=== PATIENT | female | born 1935 | race Caucasian/White ===

== ENCOUNTER 2016-07-18 10:37 | Day surgery (SDC) | payer MEDICARE, BC ==
[2016-07-15 11:37] VITALS: BMI 30.9
[~2016-07-18 10:37] MED LIST: SODIUM CHLORIDE 0.9% 1,000 ML IV SCH; ceFAZolin 1,000 MG in SODIUM CHLORIDE 0.9% IRRIGATIO 250 ML IRRIGATION ONE; ceFAZolin 2 GM in SODIUM CHLORIDE 0.9% 100 ML IVPB ONE
[2016-07-18 10:53] VITALS: TEMP 97.5
[2016-07-18] MEDS ORDERED: LORazepam 2 MG/ML SYRINGE IV ONE (11:12)
[2016-07-18] MEDS ORDERED: fentaNYL (PF) 50 MCG/ML 2 ML AMP ONE (11:55)
[2016-07-18] MEDS ORDERED: MIDAZOLAM 2 MG/2 ML VIAL ONE (11:58)
[2016-07-18] MEDS ORDERED: fentaNYL (PF) 50 MCG/ML 2 ML AMP IV ONE (12:00)
[2016-07-18] MEDS ORDERED: MIDAZOLAM 2 MG/2 ML VIAL IV ONE (12:01)
[2016-07-18] MEDS ORDERED: LIDOCAINE 2% INJ 20 MG/ML SQ ONE (12:02)
[2016-07-18] MEDS ORDERED: LIDOCAINE 0.5%-EPI 1:200,000 50 ML VIAL SQ ONE (12:16)
[2016-07-18] MEDS ORDERED: LIDOCAINE 1% INJ 10MG/ML (20 ML MDV) SQ ONE (12:16)
[2016-07-18] MEDS ORDERED: ACETAMINOPHEN TAB 325 MG TAB PO PRN ×2 (12:39→12:40)
[2016-07-18] MEDS ORDERED: HYDROcodone/APAP 5-325MG 1 EACH TAB PO PRN (12:40)
[2016-07-18 13:29] VITALS: PULSE 60
[2016-07-18 16:11] VITALS: BP 105/56; RESP 18
--- NOTE | 2016-07-19 07:01 | P.PCN ---
Date of Procedure: 07/18/16 Preoperative Diagnosis: Batteryry depletion,Pacemaker dependency Postoperative Diagnosis: same Procedure(s) Performed: Temporary pacemaker insertion,Battery replacemengt Implants: Indications for Procedure: Operative Findings: Description of Procedure: HISTORY: This pt with h/O PPM insertion was detected to have reached BENITA.Pt is advised to have elective replacement.She is advised to have temporary pacemaker insertion because of pacemaker dependency.Pt and family are explained the risks and benifits of the procedure which they fully understood and accepted. CONSCIOUS SEDATION:30 min of sedation was given with versed and fentanyl. TEMPORARY PACEMAKER INSERTION:The pt is prepped and draped in the usual fashion.The rt groin is infiltrated with lidocaine .The rt femoral vein was entered using seldinger technique and 6 fr introducer was placed. A 5 fr temporary pacemaker lead was advanced under flouroscopy in to rt ventricular apical region.A satisfactory position was found.Pacemaker is set at a rate of 50 and out put of 3. GENERATOR CHANGE:The pt is prepped and draped in usual fashion.The skin is infiltrated with lidocaine.A incision was made in the skin and deepened untill the capsule is exposed.The capsule is cut open and the generator is pulled out.The leads were checked for threshholds which were stable. A LEAD:This is manufactured by [employer].Model No is 5592 and ser no is [id number] V LEAD:Manufactured by [employer].Model no is [id number] and ser no is [id number] THRESHHOLD: ATRIUM: 0.6 V AT 0.4 MSEC ,Impedance 404 Ohms P wave is 3.2. VENTRICLE: 1.3 V @0.4 Msec ,Impedance 467 ohms and R wave is paced. New Genarator: Model L101 and ser no [id number].Manufactured by [employer]. Old Generator:Manufactured by [employer].Model no [id number] and Ser No is [id number] The leads were connected to New Generator.The pocket was irrigated with antibiotics.the skin was closed in the usual fashion.Pt tolerated the procure well. PLAN:pt will be monitored for next 2 to 3hrs.Will be discharged home later today.will continue home meds and antibiotics.usual instructions.F/U in one wk with .
== END 2016-07-18 17:30 | disposition home or self-care (01) ==
LOC: CATHEP 10:37
PROVIDERS: ATTEND Internal Medicine Cardiovascular Disease
DX: Z45.010 Encounter for checking and testing of cardiac pacemaker pulse generator [battery] (principal); R00.1 Bradycardia, unspecified; I10 Essential (primary) hypertension; E78.2 Mixed hyperlipidemia; Z79.82 Long term (current) use of aspirin; Z79.899 Other long term (current) drug therapy
CPT/HCPCS: 33228; 99152; 99153 ×3; C1894; C1769 ×2; C1785; J2001 ×2; J2250; J2060; J0690 ×2; J3010

== ENCOUNTER 2017-03-03 07:56 | Day surgery (SDC) | payer MEDICARE, BC ==
[2017-02-24 08:55] VITALS: BMI 32.5
[~2017-03-03 07:56] MED LIST changes: +DEXAMETHASONE SOD PHOSPHATE 10 MG/ML 1 ML VIAL IV ONE; +HEPARIN SODIUM,PORCINE 5,000 UNIT/ML 1 ML VIAL SQ ONE; +HYDROmorphone 1 MG/ML 1 ML SYRINGE IVP PRN; +LACTATED RINGERS 1,000 ML IV SCH; +ONDANSETRON 4 MG/2 ML VIAL IVP ONE; +Pre Op ABX Message 1 EACH MISC MISCELLANE ONE; -SODIUM CHLORIDE 0.9% 1,000 ML IV SCH; -ceFAZolin 1,000 MG in SODIUM CHLORIDE 0.9% IRRIGATIO 250 ML IRRIGATION ONE; -ceFAZolin 2 GM in SODIUM CHLORIDE 0.9% 100 ML IVPB ONE
[2017-03-03] MEDS ORDERED: LIDOCAINE 1% 20 ML VIAL (10MG/ML) FOR IV START INTRADERMA ONE (08:15)
[2017-03-03] MEDS ORDERED: ROCURONIUM BROMIDE 10 MG/ML 10 ML VIAL IV ONE (08:42)
[2017-03-03] MEDS ORDERED: fentaNYL (PF) 50 MCG/ML 2 ML AMP ONE (08:42)
[2017-03-03] MEDS ORDERED: SUCCINYLCHOLINE CHLORIDE 100 MG/5 ML SYR IV ONE (08:42)
[2017-03-03] MEDS ORDERED: LIDOCAINE 1% INJ 10MG/ML (20 ML MDV) ONE (08:42)
[2017-03-03] MEDS ORDERED: PHENYLEPHRINE-0.9% NACL SYG 1 MG/10 ML SYRINGE ONE (08:42)
[2017-03-03] MEDS ORDERED: NEOSTIGMINE 1 MG/ML 10 ML VIAL ONE (08:42)
[2017-03-03] MEDS ORDERED: PROPOFOL 10 MG/ML 20 ML VIAL IV ONE (08:42)
[2017-03-03] MEDS ORDERED: GLYCOPYRROLATE 0.2 MG/ML 2 ML VIAL ONE (08:42)
[2017-03-03] MEDS ORDERED: SODIUM CHLORIDE 0.9% 100 ML with ceFAZolin 2,000 MG IV ONE ×2 (08:45)
[2017-03-03] MEDS ORDERED: BUPIVACAINE (PF) 0.25% 30 ML VIAL SQ ONE ×2 (08:57)
--- NOTE | 2017-03-03 09:53 | P.OP ---
Date of Procedure: 03/03/17 Preoperative Diagnosis: Cholelithiasis chronic cholecystitis Postoperative Diagnosis: Cholelithiasis chronic cholecystitis with fatty infiltration of the liver. Procedure(s) Performed: Laparoscopic cholecystectomy Anesthesia: CHETAN Surgeon: Pradeep Ramirez Estimated Blood Loss (ml): 5 Pathology: other (Gallbladder with stones) Condition: stable Disposition: PACU Indications for Procedure: The patient is an 20-year-old white female with symptomatic gallstones with several episodes of severe upper abdominal pain. Workup revealed cholelithiasis and evidence of for fatty infiltration of the liver although was cirrhosis or neoplasms could not be ruled out. Laparoscopic exam with laparoscopic cholecystectomy possible open was recommended and informed consent was obtained procedure is having being explained to her including potential complication particular bleeding infection surrounding injury pain continued symptoms cardiac respiratory problems etc. She understood and agreed to proceed. After induction of general endotracheal anesthesia the abdominal wall was prepped with Betadine and draped. A small curvilinear linear incision was made just below the umbilicus under local anesthesia Marcaine 0.5% plain. The fascia was exposed and a Veress needle inserted under direct vision with a satisfactory saline drop test. The peritoneal cavity was then inflated with carbon dioxide to pressure approximately 15 mmHg. The needle was placed with a 10 mm trocar and the laparoscope inserted. 25 mm trochars were placed in the right upper quadrant and another 5 mm trocar in the epigastrium under direct vision after infiltration of local anesthesia. The fatty infiltration of the liver. No masses no nodules and no evidence of cirrhosis was identified. There were extensive omental adhesions to the gallbladder especially along the lower half. The gallbladder was retracted omental adhesions lysed away. The area of the neck carefully dissected cystic duct identified and skeletonised with the junction between the gallbladder and common duct well visualized. The cystic duct was then triply clipped and divided as was the cystic artery. The gallbladder was then dissected from its bed and removed through the umbilical port site in the Endo Catch bag. Supra and infrahepatic spaces were thoroughly irrigated. Hemostasis was good and the field was dry. All trochars were then removed under direct vision. CO2 was evacuated. Fascial incision at the umbilicus was closed with interrupted 0 Vicryl sutures and all skin incisions closed with 4-0 Monocryl subcuticular sutures and Steri-Strips. Dressings were applied. All counts were correct. Operative Findings: Cholelithiasis chronic cholecystitis. Fatty infiltration of the liver. Description of Procedure: As above Plan - Discharge Summary New Discharge Prescriptions: No Action Simvastatin [Zocor] 40 mg PO HS Lisinopril-Hctz 20-25 mg [Zestoretic 20-25] 1 tab PO DAILY Propranolol HCl [Propranolol HCl ER] 60 mg PO HS Escitalopram [Lexapro] 10 mg PO DAILY Omeprazole [PriLOSEC] 20 mg PO DAILY Aspirin [Adult Low Dose Aspirin EC] 81 mg PO DAILY Discharge Medication List Escitalopram [Lexapro] 10 mg PO DAILY 07/31/14 [History] Lisinopril-Hctz 20-25 mg [Zestoretic 20-25] 1 tab PO DAILY 07/31/14 [History] Propranolol HCl [Propranolol HCl ER] 60 mg PO HS 07/31/14 [History] Simvastatin [Zocor] 40 mg PO HS 07/31/14 [History] Omeprazole [PriLOSEC] 20 mg PO DAILY 10/24/14 [History] Aspirin [Adult Low Dose Aspirin EC] 81 mg PO DAILY 02/24/17 [History]
[2017-03-03] MEDS ORDERED: traMADol 50 MG TAB PO ONE (11:05)
[2017-03-04 22:57] VITALS: BP 127/60; PULSE 61; RESP 18; TEMP 96.7
== END 2017-03-03 12:59 | disposition home or self-care (01) ==
LOC: OR 07:56
PROVIDERS: ATTEND Surgery
DX: K80.10 Calculus of gallbladder with chronic cholecystitis without obstruction (principal); K66.0 Peritoneal adhesions (postprocedural) (postinfection); K76.0 Fatty (change of) liver, not elsewhere classified; K21.9 Gastro-esophageal reflux disease without esophagitis; I10 Essential (primary) hypertension; E78.5 Hyperlipidemia, unspecified; H26.9 Unspecified cataract; E66.9 Obesity, unspecified; Z68.35 Body mass index [BMI] 35.0-35.9, adult; Z79.82 Long term (current) use of aspirin; Z79.899 Other long term (current) drug therapy; Z82.49 Family history of ischemic heart disease and other diseases of the circulatory system; Z83.3 Family history of diabetes mellitus
CPT/HCPCS: 47562; 88304; J1644; J1100; J2710; J2405; J0690; J2001; J3010; J2370; J0330; J2704

== ENCOUNTER → 2017-04-10 | Outpatient (CLI) | payer MEDICARE, BC ==
--- NOTE | 2017-04-14 08:58 | MM ---
Reason for exam: screening (asymptomatic). Last mammogram was performed 1 year and 2 months ago. History: Patient is postmenopausal. 3 cyst aspirations of the left breast. Cyst aspiration of the right breast. Core biopsy of the right breast. Excisional biopsy of the left breast. 2 excisional biopsies of the right breast. Took estrogen for 10 years beginning at age 55. Physical Findings: A clinical breast exam by your physician is recommended on an annual basis and results should be correlated with mammographic findings. MG 3D Screening Mammo W/Cad Bilateral CC and MLO view(s) were taken. Prior study comparison: February 01, 2016, bilateral MG screening mammo w CAD. January 23, 2015, bilateral MG screening mammo w CAD. The breast tissue is heterogeneously dense. This may lower the sensitivity of mammography. Generator device on the left. No significant changes when compared with prior studies. ASSESSMENT: Negative, BI-RAD 1 RECOMMENDATION: Routine screening mammogram of both breasts in 1 year.
== END | disposition home or self-care (01) ==
LOC: RADMAMWWP 10:48
PROVIDERS: ATTEND Family Medicine
DX: Z12.31 Encounter for screening mammogram for malignant neoplasm of breast (principal); R10.84 Generalized abdominal pain; R11.0 Nausea; R19.7 Diarrhea, unspecified
CPT/HCPCS: 77063; 77067

== ENCOUNTER → 2018-07-22 | Outpatient (CLI) | payer MEDICARE, BC ==
[2018-07-22 15:36] LABS: HCT 43.3 % (34.0-46.0); HGB 14.2 gm/dL (11.4-16.0); MCH 31.8 pg (25.0-35.0); MCHC 32.8 g/dL (31.0-37.0); Mean Platelet Volume 8.4; Platelet Count 276 k/uL (150-450); RBC 4.47 m/uL (3.80-5.40); RDW 12.2 % (11.5-15.5); WBC 7.2 k/uL (3.8-10.6)
[2018-07-22 15:39] LABS: ALT 21 U/L (9-52); AST 24 U/L (14-36); Albumin 4.3 g/dL (3.5-5.0); Alkaline Phosphatase 82 U/L (38-126); Amylase 64 U/L (30-110); Anion Gap 5 mmol/L; Blood Urea Nitrogen 18 mg/dL (7-17); Calcium 11.1 mg/dL (8.4-10.2); Carbon Dioxide 33 mmol/L (22-30); Chloride 99 mmol/L (98-107); Glucose 95 mg/dL (74-99); Lipase 71 U/L (23-300); Potassium 3.9 mmol/L (3.5-5.1); Sodium 137 mmol/L (137-145); Total Bilirubin 1.3 mg/dL (0.2-1.3); Total Protein 6.6 g/dL (6.3-8.2)
--- NOTE | 2018-07-22 16:22 | CT ---
EXAMINATION TYPE: CT abdomen pelvis w con DATE OF EXAM: 07/22/2018 COMPARISON: 07/31/2014 INDICATION: Abdominal pain. DLP: 1329.4 mGycm, Automated exposure control for dose reduction was used. CONTRAST: 100ml mL of Isovue 300. Study performed with Oral Contrast TECHNIQUE: Axial images were obtained from above the diaphragm to the pubic rami in the axial plane a t 5 mm thick sections. Reconstructed images are reviewed on the computer in the coronal plane. FINDINGS: Limited CT sections are obtained the lung bases. The lung bases are clear. There is a moderate size hiatal hernia present. CT ABDOMEN: Liver: There is a 1.5 cm hypodensity at the inferior anterior right lobe liver. Additional hypodensit ies near the ligamentum teres. Findings are likely related to hepatic cysts. Spleen: Normal Pancreas: Normal Adrenal glands: The adrenal glands are normal. Gallbladder: Surgically absent Kidneys: No masses are evident. No hydronephrosis is present. No cysts are present. Delayed images were obtained through the kidneys, which remain unremarkable. Aorta: Normal Inferior vena cava: Normal. CT PELVIS: Loops of bowel within the abdomen and pelvis are normal. There are loops of bowel which are incom pletely distended or lack oral contrast limiting their evaluation. A few diverticuli are within the s igmoid colon. Appendix: Not identified. No suspicious inflammatory changes or dilated tubular structures are eviden t. Urinary bladder: Decompressed with limited evaluation Genitourinary structures: Osseous structures: No suspicious lytic or sclerotic lesions. Degenerative endplate changes are prese nt L3-L4, L5-S1. T11-12 degenerative disc changes are present IMPRESSIONS: 1. No suspicious abnormality to account for abdominal pain.
== END | disposition home or self-care (01) ==
LOC: RADCTMAIN 13:36
PROVIDERS: ATTEND Nurse Practitioner Family
DX: R19.4 Change in bowel habit (principal); R10.827 Generalized rebound abdominal tenderness; R10.84 Generalized abdominal pain; R19.7 Diarrhea, unspecified
CPT/HCPCS: 80053; 82150; 83690; 85027; 74177; 36415; Q9967 ×2

== ENCOUNTER → 2018-09-17 | Outpatient (CLI) | payer MEDICARE, BC ==
--- NOTE | 2018-09-20 09:25 | MM ---
Reason for exam: screening (asymptomatic). Last mammogram was performed 1 year and 5 months ago. History: Patient is postmenopausal. 3 cyst aspirations of the left breast. Cyst aspiration of the right breast. Core biopsy of the right breast. Excisional biopsy of the left breast. 2 excisional biopsies of the right breast. Took estrogen for 10 years beginning at age 55. Physical Findings: A clinical breast exam by your physician is recommended on an annual basis and results should be correlated with mammographic findings. MG 3D Screening Mammo W/Cad Bilateral CC and MLO view(s) were taken. Prior study comparison: April 10, 2017, bilateral MG 3d screening mammo w/cad. February 01, 2016, bilateral MG screening mammo w CAD. The breast tissue is heterogeneously dense. This may lower the sensitivity of mammography. Stable benign calcifications. There is no discrete abnormality. No significant changes when compared with prior studies. ASSESSMENT: Benign, BI-RAD 2 RECOMMENDATION: Routine screening mammogram of both breasts in 1 year.
== END | disposition home or self-care (01) ==
LOC: RADMAMWWP 11:06
PROVIDERS: ATTEND Family Medicine
DX: Z12.31 Encounter for screening mammogram for malignant neoplasm of breast (principal)
CPT/HCPCS: 77063; 77067

== ENCOUNTER → 2023-03-16 | Outpatient (CLI) | payer MEDICARE ==
[2023-03-16 18:50] LABS: African American GFR (CKD) 84 (>60 ml/min/1.73 sqM); Blood Urea Nitrogen 15 mg/dL (7-17); Non-African American GFR(CKD) 73 (>60 ml/min/1.73 sqM)
--- NOTE | 2023-03-16 21:20 | CT ---
EXAMINATION TYPE: CT abdomen pelvis w con CT DLP: 1308.3 mGycm, Automated exposure control for dose reduction was used. DATE OF EXAM: 03/16/2023 8:35 PM COMPARISON: 07/22/2018 CLINICAL INDICATION:Female, 88 years old with history of K59.01 CONSTIPATION R10.84 GEN ABD PAIN R19. 4; abdominal pain and constipation TECHNIQUE: Axial CT abdomen pelvis w con;Sagittal and coronal reformats were created on a separate w orkstation. Contrast used:100 mL of Isovue 300 with IV Contrast, (none if empty) Oral contrast used: with Oral Contrast (none if empty) FINDINGS: LOWER CHEST: Unremarkable ABDOMEN LIVER: Scattered hepatic probable cyst. GALLBLADDER AND BILE DUCTS: Gallbladder surgically absent. PANCREAS: Unremarkable. SPLEEN: Probable cyst. ADRENAL GLANDS: Unremarkable. KIDNEYS AND URETERS: No evidence of hydronephrosis or renal calculus. The ureters are unremarkable. Extrarenal pelves bilaterally. Left inferior renal pole cyst. PELVIS BLADDER: Unremarkable REPRODUCTIVE: Unremarkable. ABDOMEN & PELVIS STOMACH AND BOWEL: No evidence of bowel obstruction. Moderate hiatal hernia. Scattered colonic divert icula. Redundant colon is seen throughout the abdomen. Oral contrast extends to the rectum. Mild to m oderate stool in the colon. PERITONEUM/RETROPERITONEUM: No evidence of pneumoperitoneum or free fluid. VASCULATURE: No evidence of aortic aneurysm. Atherosclerosis of the arterial vasculature. MUSCULOSKELETAL: No acute osseous abnormalities. Moderate disc degeneration changes are present throu ghout the thoracolumbar spine. LYMPH NODES: No gross evidence for lymphadenopathy. SOFT TISSUE/ABDOMINAL WALL: Unremarkable IMPRESSION: 1. No definitive evidence for acute abdominal process. Mild to moderate stool burden throughout the colon. 2. Redundant colon present. 3. Scattered colonic diverticula.
== END | disposition home or self-care (01) ==
LOC: RADCTMAIN 17:47
PROVIDERS: ATTEND Family Medicine
DX: K57.90 Diverticulosis of intestine, part unspecified, without perforation or abscess without bleeding (principal); K59.01 Slow transit constipation; R10.84 Generalized abdominal pain
CPT/HCPCS: 82565; 84520; 74177; 36415; Q9967

== ENCOUNTER 2023-09-07 13:48 | Emergency (ER) | payer MEDICARE ==
[2023-09-07 14:03] VITALS: RESP 16; TEMP 98.6
--- NOTE | 2023-09-07 14:22 | ED ---
Dizziness HPI - General Chief Complaint: Nausea/Vomiting/Diarrhea Stated Complaint: dizzyness Time Seen by Provider: 09/07/23 13:56 Source: patient, EMS, RN notes reviewed, old records reviewed Mode of arrival: EMS Limitations: no limitations - History of Present Illness Initial Comments: This is an 88-year-old female patient presents today for evaluation of vertiginous symptoms as severe and sudden onset today. Improved currently. Symptoms were traumatic room spinning with nausea and vomiting. Patient presents by EMS for the symptoms with instability on her feet MD Complaint: dizziness, difficulty walking -: hour(s) Timing: sudden onset Description: sense of movement, "room spinning", off-balance, difficulty walking History of Same: No History of Trauma: No Improves With: remaining still, other Worsens With: nothing Associated Symptoms: ataxia - Related Data Home Medications Medication Instructions Recorded Confirmed Escitalopram [Lexapro] 10 mg PO DAILY 07/31/14 09/08/23 Propranolol HCl [Propranolol HCl 60 mg PO HS 07/31/14 09/08/23 ER] Simvastatin [Zocor] 40 mg PO HS 07/31/14 09/08/23 Nystatin 100,000Unit/gm Cream 1 applic TOPICAL TID PRN 09/08/23 09/08/23 [Mycostatin Cream] Omeprazole 40 mg PO DAILY 09/08/23 09/08/23 Zolpidem [Ambien] 2.5 mg PO HS PRN 09/08/23 09/08/23 Previous Rx's Medication Instructions Recorded Aspirin 81 mg PO DAILY #30 tab 09/09/23 Allergies Allergy/AdvReac Type Severity Reaction Status Date / Time No Known Allergies Allergy Verified 09/08/23 07:12 Review of Systems ROS Statement: Those systems with pertinent positive or pertinent negative responses have been documented in the HPI. ROS Other: All systems not noted in ROS Statement are negative. Past Medical History Past Medical History: GERD/Reflux, GI Bleed, Hyperlipidemia, Hypertension, Osteoarthritis (OA) Additional Past Medical History / Comment(s): arthritis, past arrythmia where heart rate dipped into 40's-has pacemaker since 2007 and history of lower GI hemorrhage, [place] OF URINE, CATARACTS History of Any Multi-Drug Resistant Organisms: None Reported Past Surgical History: Hysterectomy, Pacemaker, Tubal Ligation Additional Past Surgical History / Comment(s): ingris breast biopsy,colonoscopy, INGRIS KNEE REPLACEMENT Past Anesthesia/Blood Transfusion Reactions: No Reported Reaction Type of Cardiac Device: Permanent Pacemaker Device Placement Date:: 2007 Past Psychological History: Anxiety Past Alcohol Use History: Occasional Additional Past Alcohol Use History / Comment(s): smoked x 20 years- 1ppd, quit in 1982. Past Drug Use History: None Reported - Past Family History Father Family Medical History: Congestive Heart Failure (CHF), Diabetes Mellitus, Hypertension Mother Family Medical History: Diabetes Mellitus, Hyperlipidemia, Hypertension, Myocardial Infarction ([place]) Additional Family Medical History / Comment(s): kidney stones/GALL STONES General Exam - General Exam Comments Initial Comments: NIH of 0 Finger-nose testing is normal Limitations: no limitations General appearance: alert, in no apparent distress Head exam: Present: atraumatic, normocephalic, normal inspection Eye exam: Present: normal appearance, PERRL, EOMI, nystagmus. Absent: scleral icterus, conjunctival injection, periorbital swelling ENT exam: Present: normal exam, mucous membranes moist Neck exam: Present: normal inspection. Absent: tenderness, meningismus, lymphadenopathy Respiratory exam: Present: normal lung sounds bilaterally. Absent: respiratory distress, wheezes, rales, rhonchi, stridor Cardiovascular Exam: Present: regular rate, normal rhythm, normal heart sounds. Absent: systolic murmur, diastolic murmur, rubs, gallop, clicks GI/Abdominal exam: Present: soft, normal bowel sounds. Absent: distended, tenderness, guarding, rebound, rigid Extremities exam: Present: normal inspection, full ROM, normal capillary refill. Absent: tenderness, pedal edema, joint swelling, calf tenderness Back exam: Present: normal inspection Neurological exam: Present: alert, oriented X3, CN II-XII intact Psychiatric exam: Present: normal affect, normal mood Skin exam: Present: warm, dry, intact, normal color. Absent: rash Course Vital Signs 09/07/23 09/07/23 14:01 16:13 Temperature 98.6 F Pulse Rate 60 74 Respiratory 16 16 Rate Blood Pressure 127/70 121/82 O2 Sat by Pulse 92 L 98 Oximetry - Reevaluation(s) Reevaluation #1: 09/07/23 15:11 Medical records reviewed Reevaluation #2: 09/07/23 15:11 Patient symptoms have been improved and remain improved, able to ambulate Reevaluation #3: 09/07/23 15:11 Patient informed of results questions answered Reevaluation #4: Was pt. sent in by a medical professional or institution (MAYNOR Garvin, PREBOARDER, urgent care, hospital, or [place] health [place] facility...) When possible be specific @ -no Did you speak to anyone other than the patient for history (EMS, parent, family, police, friend...)? What history was obtained from this source @ -no Did you review nursing and triage notes (agree or disagree)? Why? @ -agree Are old charts reviewed (outside hosp., previous admission, EMS record, old EKG, old radiological studies, urgent care reports/EKG's, [place] health [facility] facility records)? Report findings @ -yes Differential Diagnosis (chest pain, altered mental status, abdominal pain women, abdominal pain men, vaginal bleeding, weakness, fever, dyspnea, syncope, headache, dizziness, GI bleed, back pain, seizure, CVA, palpatations, mental health, musculoskeletal)? @ -prior EKG interpreted by me (3pts min.). @ -yes X-rays interpreted by me (1pt min.). @ -yes negative for acute disease CT interpreted by me (1pt min.). @ -no U/S interpreted by me (1pt. min.). @ -no What testing was considered but not performed or refused? (CT, X-rays, U/S, labs)? Why? @ -none What meds were considered but not given or refused? Why? @ -none Did you discuss the management of the patient with other professionals (professionals i.e. MAY[facility] Garvin, PREBOARDER, lab, RT, psych nurse, social service agency director, wooden tank erector, teacher, deputy juvenile officer, spring encaser)? Give summary @ -no Was smoking cessation discussed for >3mins.? @ -no Was critical care preformed (if so, how long)? @ -no Were there social determinants of health that impacted care today? How? (Homelessness, low income, unemployed, alcoholism, drug addiction, transportation, low edu. Level, literacy, decrease access to med. care, senior living, rehab)? @ -none Was there de-escalation of care discussed even if they declined (Discuss DNR or withdrawal of care, Hospice)? DNR status @ -no What co-morbidities impacted this encounter? (DM, HTN, Smoking, COPD, CAD, Cancer, CVA, ARF, Chemo, Hep., AIDS, mental health diagnosis, sleep apnea, morbid obesity)? @ -none Was patient admitted / discharged? Hospital course, mention meds given and route, prescriptions, significant lab abnormalities, going to OR and other pertinent info. @ - Undiagnosed new problem with uncertain prognosis? @ -no Drug Therapy requiring intensive monitoring for toxicity (Heparin, Nitro, Insulin, Cardizem)? @ -no Were any procedures done? @ -no Diagnosis/symptom? @ - Acute, or Chronic, or Acute on Chronic? @ -Acute Uncomplicated (without systemic symptoms) or Complicated (systemic symptoms)? @ -Complicated Side effects of treatment? @ -no Exacerbation, Progression, or Severe Exacerbation? @ -exacerbation Poses a threat to life or bodily function? How? (Chest pain, [place], [place], pneumonia, PE, COPD, DKA, ARF, appy, cholecystitis, CVA, Diverticulitis, Homicidal, Suicidal, threat to staff... and all critical care pts) @ -yes Reevaluation #5: Differential Dizziness: Benign paroxysmal positional Vertigo, Menieres disease, otitis media, acoustic neuroma, vertebrobasilar insufficiency, cerebellar stroke, encephalitis, hypovolemic, arrhythmia, coronary artery syndrome, anemia, this is not meant to be an all-inclusive list EKG Findings - EKG Comments: EKG Findings:: EKG is paced 68 FL 228 QRS 191 QTc 517 - EKG Results: EKG: interpreted by [facility]EX Medical Decision Making - Medical Decision Making 88 female to be discharged with vertigo. Patient given vertiginous exercises as well as Antivert and nausea meds and can be discharged - Lab Data Result diagrams: 09/07/23 15:31 09/07/23 15:31 Lab Results 09/07/23 09/07/23 09/07/23 Range/Units 15:31 15:31 15:31 WBC 8.8 (3.8-10.6) k/uL RBC 4.09 (3.80-5.40) m/uL Hgb 13.2 (11.4-16.0) gm/dL Hct 42.3 (34.0-46.0) % MCV 103.3 H (80.0-100.0) fL MCH 32.1 (25.0-35.0) pg MCHC 31.1 (31.0-37.0) g/dL RDW 11.8 (11.5-15.5) % Plt Count 216 (150-450) k/uL MPV 8.2 Neutrophils % 82 % Lymphocytes % 13 % Monocytes % 3 % Eosinophils % 1 % Basophils % 1 % Neutrophils # 7.2 (1.3-7.7) k/uL Lymphocytes # 1.1 (1.0-4.8) k/uL Monocytes # 0.3 (0-1.0) k/uL Eosinophils # 0.1 (0-0.7) k/uL Basophils # 0.1 (0-0.2) k/uL Macrocytosis Slight PT 11.0 (10.0-12.5) sec INR 1.0 (<1.2) APTT 22.2 (22.0-30.0) sec Sodium 138 (137-145) mmol/L Potassium 3.5 (3.5-5.1) mmol/L Chloride 104 (98-107) mmol/L Carbon Dioxide 33 H (22-30) mmol/L Anion Gap 1 mmol/L BUN 15 (7-17) mg/dL Creatinine 0.47 L (0.52-1.04) mg/dL Est GFR (CKD-EPI)AfAm >90 (>60 ml/min/1.73 sqM) Est GFR (CKD-EPI)NonAf 90 (>60 ml/min/1.73 sqM) Glucose 117 H (74-99) mg/dL Calcium 9.4 (8.4-10.2) mg/dL Phosphorus 2.7 (2.5-4.5) mg/dL Magnesium 1.7 (1.6-2.3) mg/dL Total Bilirubin 1.4 H (0.2-1.3) mg/dL AST 25 (14-36) U/L ALT 13 (4-34) U/L Alkaline Phosphatase 79 (38-126) U/L Troponin I (0.000-0.034) ng/mL NT-Pro-B Natriuret Pep 150 pg/mL Total Protein 5.4 L (6.3-8.2) g/dL Albumin 3.4 L (3.5-5.0) g/dL 09/07/23 Range/Units 15:31 WBC (3.8-10.6) k/uL RBC (3.80-5.40) m/uL Hgb (11.4-16.0) gm/dL Hct (34.0-46.0) % MCV (80.0-100.0) fL MCH (25.0-35.0) pg MCHC (31.0-37.0) g/dL RDW (11.5-15.5) % Plt Count (150-450) k/uL MPV Neutrophils % % Lymphocytes % % Monocytes % % Eosinophils % % Basophils % % Neutrophils # (1.3-7.7) k/uL Lymphocytes # (1.0-4.8) k/uL Monocytes # (0-1.0) k/uL Eosinophils # (0-0.7) k/uL Basophils # (0-0.2) k/uL Macrocytosis PT (10.0-12.5) sec INR (<1.2) APTT (22.0-30.0) sec Sodium (137-145) mmol/L Potassium (3.5-5.1) mmol/L Chloride (98-107) mmol/L Carbon Dioxide (22-30) mmol/L Anion Gap mmol/L BUN (7-17) mg/dL Creatinine (0.52-1.04) mg/dL Est GFR (CKD-EPI)AfAm (>60 ml/min/1.73 sqM) Est GFR (CKD-EPI)NonAf (>60 ml/min/1.73 sqM) Glucose (74-99) mg/dL Calcium (8.4-10.2) mg/dL Phosphorus (2.5-4.5) mg/dL Magnesium (1.6-2.3) mg/dL Total Bilirubin (0.2-1.3) mg/dL AST (14-36) U/L ALT (4-34) U/L Alkaline Phosphatase (38-126) U/L Troponin I 0.120 H* (0.000-0.034) ng/mL NT-Pro-B Natriuret Pep pg/mL Total Protein (6.3-8.2) g/dL Albumin (3.5-5.0) g/dL - Radiology Data Radiology results: report reviewed (CT brain is negative for acute disease), image reviewed Disposition Clinical Impression: Dehydration, Vertigo Disposition: HOME SELF-CARE Condition: Good Is patient prescribed a controlled substance at d/c from ED?: No Referrals: Petar Maria MD [Primary Care Provider] - 1-2 days
[2023-09-07] MEDS: MECLIZINE 12.5 MG TAB PO STA (14:55)
[2023-09-07] MEDS: SODIUM CHLORIDE 0.9% 1,000 ML IV STA (14:56)
[2023-09-07] MEDS: diphenhydrAMINE 50 MG/ML 1 ML VIAL IVP STA (14:56)
[2023-09-07] MEDS: ONDANSETRON 4 MG/2 ML VIAL IVP STA (14:56)
--- NOTE | 2023-09-07 15:24 | CT ---
EXAMINATION TYPE: CT brain wo con DATE OF EXAM: 09/07/2023 COMPARISON: 05/16/2012 HISTORY: weakness and vertigo episode CT DLP: 1121.4 mGycm Automated exposure control for dose reduction was used. Findings: The ventricles, basal cisterns and sulci over the convexities are within normal limits for the patien t's age and there is no mass effect or shift of midline structures. There is mild diffuse decreased density in the periventricular white matter consistent with mild peanut salter edwina ischemic white matter demyelination. There is no acute intra or extra-axial hemorrhage.. The posterior fossa including the brainstem, fourth ventricle and cerebellar pontine angles appear no rmal. Intraorbital contents appear normal and symmetric. Visualized paranasal sinuses and mastoid air cells are well aerated. The calvarium is intact. IMPRESSION: 1. No acute bleed or mass effect. 2. Age-appropriate senescent changes.
[2023-09-07 15:59] LABS: Basophils # (A) 0.1 k/uL (0-0.2); Basophils % (A) 1 %; Eosinophils # (A) 0.1 k/uL (0-0.7); Eosinophils % (A) 1 %; HCT 42.3 % (34.0-46.0); HGB 13.2 gm/dL (11.4-16.0); Lymphocytes # (A) 1.1 k/uL (1.0-4.8); Lymphocytes % (A) 13 %; MCH 32.1 pg (25.0-35.0); MCHC 31.1 g/dL (31.0-37.0); MCV 103.3 fL (80.0-100.0); Macrocytosis Slight; Mean Platelet Volume 8.2; Monocytes # (A) 0.3 k/uL (0-1.0); Monocytes % (A) 3 %; Neutrophils # (A) 7.2 k/uL (1.3-7.7); Neutrophils % (A) 82 %; Platelet Count 216 k/uL (150-450); RBC 4.09 m/uL (3.80-5.40); RDW 11.8 % (11.5-15.5); WBC 8.8 k/uL (3.8-10.6)
[2023-09-07] MEDS: ONDANSETRON 4 MG ODT STARTER PACK 2 TAB BTL PO STA (16:04)
[2023-09-07 16:14] VITALS: BP 121/82; PULSE 74
[2023-09-07 16:15] LABS: Partial Thromboplastin Time 22.2 sec (22.0-30.0)
[2023-09-07 16:25] LABS: ALT 13 U/L (4-34); AST 25 U/L (14-36); African American GFR (CKD) >90 (>60 ml/min/1.73 sqM); Albumin 3.4 g/dL (3.5-5.0); Alkaline Phosphatase 79 U/L (38-126); Anion Gap 1 mmol/L; Blood Urea Nitrogen 15 mg/dL (7-17); Calcium 9.4 mg/dL (8.4-10.2); Carbon Dioxide 33 mmol/L (22-30); Chloride 104 mmol/L (98-107); Glucose 117 mg/dL (74-99); Magnesium 1.7 mg/dL (1.6-2.3); Non-African American GFR(CKD) 90 (>60 ml/min/1.73 sqM); Phosphorus 2.7 mg/dL (2.5-4.5); Potassium 3.5 mmol/L (3.5-5.1); Sodium 138 mmol/L (137-145); Total Bilirubin 1.4 mg/dL (0.2-1.3); Total Protein 5.4 g/dL (6.3-8.2)
[2023-09-07 16:32] LABS: NT-Pro-B-Type Natriuretic Pept 150 pg/mL
== END 2023-09-07 16:14 | disposition home or self-care (01) ==
LOC: EC 13:48
DX: E86.0 Dehydration (principal); R42 Dizziness and giddiness
CPT/HCPCS: 36415; 93005; 83880; 80053; 83735; 84100; 84484; 85025; 85610; 85730; 70450; 99285; 96374; 96361; 96375; J1200; J2405; S0119

== ENCOUNTER 2023-09-07 17:54 | Inpatient (IN) | payer MEDICARE ==
--- NOTE | 2023-09-07 18:23 | ED ---
Recheck HPI - General Source: patient, RN notes reviewed Mode of arrival: ambulatory Limitations: no limitations <Yenifer Dawn - Last Filed: 09/07/23 18:21> <Sridhar Mariscal - Last Filed: 09/07/23 22:13> - General Chief Complaint: Recheck/Abnormal Lab/Rx Stated Complaint: ABN LABS Time Seen by Provider: 09/07/23 18:22 - History of Present Illness Initial Comments: Quick [id number] female presenting due to elevated troponin. States she was here earlier today for dizziness and left before her troponin had returned. Denies chest pain, shortness of breath. Denies blood thinners. (Yenifer Dawn) Dictation was produced using [employer] dictation software. please excuse any grammatical, word or spelling errors. Chief Complaint: 88-year-old female presents to the emergency department for elevated troponin History of Present Illness: Patient is 88-year-old female she was seen in the emergency department earlier today. Apparently she was diagnosed with vertigo. Patient was discharged. I was notified that patient had elevated troponin level. I requested that the nurse contact the patient and that she return to the emergency department for hospital admission. Some history obtained from daughter at the bedside apparently she had some episodes of dizziness that was accompanied with vomiting and some mild epigastric pain. Patient adamant that her symptoms was more involved with vertigo. She follows closely with Dr. Cerrato who manages her cardiac issues. Patient denies any symptoms at the bedside. The ROS documented in this emergency department record has been reviewed and confirmed by me. Those systems with pertinent positive or negative responses have been documented in the HPI. All other systems are other negative and/or noncontributory. (Sridhar Mariscal) - Related Data Home Medications Medication Instructions Recorded Confirmed Escitalopram [Lexapro] 10 mg PO DAILY 07/31/14 03/03/17 Lisinopril-Hctz 20-25 mg 1 tab PO DAILY 07/31/14 03/03/17 [Zestoretic 20-25] Propranolol HCl [Propranolol HCl 60 mg PO HS 07/31/14 03/03/17 ER] Simvastatin [Zocor] 40 mg PO HS 07/31/14 03/03/17 Omeprazole [PriLOSEC] 20 mg PO DAILY 10/24/14 03/03/17 Previous Rx's Medication Instructions Recorded traMADol HCL [Ultram] 50 mg PO Q4HR PRN #10 tab 03/03/17 Meclizine [Antivert] 25 mg PO TID #15 tab 09/07/23 Allergies Allergy/AdvReac Type Severity Reaction Status Date / Time No Known Allergies Allergy Verified 02/24/17 08:34 Review of Systems ROS Other: All systems not noted in ROS Statement are negative. <Yenifer Dawn - Last Filed: 09/07/23 18:21> ROS Other: All systems not noted in ROS Statement are negative. <Sridhar Mariscal - Last Filed: 09/07/23 22:13> ROS Statement: Those systems with pertinent positive or pertinent negative responses have been documented in the HPI. Past Medical History Past Medical History: GERD/Reflux, GI Bleed, Hyperlipidemia, Hypertension, Osteoarthritis (OA) Additional Past Medical History / Comment(s): arthritis, past arrythmia where heart rate dipped into 40's-has pacemaker since 2007 and history of lower GI hemorrhage, LEAKLAGE OF URINE, CATARACTS History of Any Multi-Drug Resistant Organisms: None Reported Past Surgical History: Hysterectomy, Pacemaker, Tubal Ligation Additional Past Surgical History / Comment(s): ingris breast biopsy,colonoscopy, INGRIS KNEE REPLACEMENT Past Anesthesia/Blood Transfusion Reactions: No Reported Reaction Type of Cardiac Device: Permanent Pacemaker Device Placement Date:: 2007 Past Psychological History: Anxiety Past Alcohol Use History: Occasional Past Drug Use History: None Reported - Past Family History Father Family Medical History: Congestive Heart Failure (CHF), Diabetes Mellitus, Hypertension Mother Family Medical History: Diabetes Mellitus, Hyperlipidemia, Hypertension, Myocardial Infarction ([place]) Additional Family Medical History / Comment(s): kidney stones/GALL STONES <Yenifer Dawn - Last Filed: 09/07/23 18:21> General Exam Limitations: no limitations <Yenifer Dawn - Last Filed: 09/07/23 18:21> <Sridhar Mariscal - Last Filed: 09/07/23 22:13> - General Exam Comments Initial Comments: Visual Physical Exam Vital signs reviewed General: Well-appearing, nontoxic, no acute distress. Head: Normocephalic, atraumatic Eyes: PERRLA, EOMI ENT: Airway patent Chest: Nonlabored breathing Skin: No visual rash, normal skin tone Neuro: Alert and oriented 3 Musculoskeletal: No gross abnormalities (Yenifer Dawn) PHYSICAL EXAM: General Impression: Alert and oriented x3, not in acute distress HEENT: Normocephalic atraumatic, extra-ocular movements intact, pupils equal and reactive to light bilaterally, mucous membranes moist. Cardiovascular: Heart regular rate and rhythm Chest: Able to complete full sentences, no retractions, no tachypnea Abdomen: abdomen soft, non-tender, non-distended, no organomegaly Musculoskeletal: Pulses present and equal in all extremities, no peripheral edema Motor: no focal deficits noted Neurological: CN II-XII grossly intact, no focal motor or sensory deficits noted Skin: Intact with no visualized rashes Psych: Normal affect and mood (Sridhar Mariscal) Course Vital Signs 09/07/23 18:03 Temperature 97.9 F Pulse Rate 62 Respiratory 16 Rate Blood Pressure 104/66 O2 Sat by Pulse 96 Oximetry Medical Decision Making <Yenifer Dawn - Last Filed: 09/07/23 18:21> <Sridhar Mariscal - Last Filed: 09/07/23 22:13> - Medical Decision Making I completed the quick note portion of this chart signed Yenifer Dawn PA-C (Yenifer Dawn) Was pt. sent in by a medical professional or institution (MAYNOR Garvin, FOUNDRY WORKER APPRENTICE, urgent care, hospital, or long-term...) When possible be specific @ -No Did you speak to anyone other than the patient for history (EMS, parent, family, police, friend...)? What history was obtained from this source @ -Daughter as described above Did you review nursing and triage notes (agree or disagree)? Why? @ -I reviewed and agree with nursing and triage notes Were old charts reviewed (outside hosp., previous admission, EMS record, old EKG, old radiological studies, urgent care reports/EKG's, long-term records)? Report findings @ -No old charts were reviewed Differential Diagnosis (chest pain, altered mental status, abdominal pain women, abdominal pain men, vaginal bleeding, musculoskeletal, weakness, fever, dyspnea, syncope, headache, dizziness, GI bleed, back pain, seizure, CVA, palpatations, mental health)? @ -Differential Chest Pain: Stable Angina, Unstable Angina, STEMI, NSTEMI Aortic Dissection, Pneumothorax, Musculoskeletal, Esophageal Spasm GERD, Cholecystitis, Pancreatitis, Zoster, this is not meant to be an all-inclusive list. EKG interpreted by me (3pts min.). @ -My EKG interpretation: Ventricular rate 63, ventricular paced rhythm,. 1 OK interval 216, QRS 174, QTc 487. No OK prolongation, no QTC prolongation, no ST or T-wave changes noted. EKG compared to [default value] showing no changes. Overall, this EKG is unremarkable X-rays interpreted by me (1pt min.). @ -None done CT interpreted by me (1pt min.). @ -None done U/S interpreted by me (1pt. min.). @ -None done What testing was considered but not performed or refused? (CT, X-rays, U/S, labs)? Why? @ -None What meds were considered but not given or refused? Why? @ -None Was smoking cessation discussed for >3mins.? @ -No Were there social determinants of health that impacted care today? How? (Homelessness, low income, unemployed, alcoholism, drug addiction, transportation, low edu. Level, literacy, decrease access to med. care, long term, rehab)? @ -No Was there de-escalation of care discussed even if they declined (Discuss DNR or withdrawal of care, Hospice)? DNR status @ -No What co-morbidities impacted this encounter? (DM, HTN, Smoking, COPD, CAD, Cancer, CVA, ARF, Chemo, Hep., AIDS, mental health diagnosis, sleep apnea, morbid obesity)? @ -None Was patient admitted / discharged? Hospital course, mention meds given and route, prescriptions, significant lab abnormalities, going to OR and other pertinent info. @ -88-year-old female presents to the emergency department. She was asked to come back for elevated troponin. Her troponin from 330 was 0.1-0. Repeat troponin performed at 630 was 0.210. At the bedside she is not having any ACS symptoms. She denies any dizziness she is asymptomatic. We do not have any old troponin levels for comparison. She did have complete labs earlier there is no clear explanation for why patient has an elevated troponin. Patient started heparin will be admitted with consultation to cardiology. Did you discuss the management of the patient with other professionals (professionals i.e. , PA, FOUNDRY WORKER APPRENTICE, lab, RT, psych nurse, social sciences instructor, flame planer, teacher, guest relations officer, telephonic case manager)? Give summary @ -No Was critical care preformed (if so, how long)? @ -Yes, 33 minutes Undiagnosed new problem with uncertain prognosis? @ -No Drug Therapy requiring intensive monitoring for toxicity (Heparin, Nitro, Insulin, Cardizem)? @ -No Were any procedures done? @ -No Diagnosis/symptom? Acute, or Chronic, or Acute on Chronic? Uncomplicated (without systemic symptoms) or Complicated (systemic symptoms)? @ -Elevated troponin, suspect NSTEMI Side effects of treatment? @ -No Exacerbation, Progression, or Severe Exacerbation? @ -No Poses a threat to life or bodily function? How? (Chest pain, [place], [place], pneumonia, PE, COPD, DKA, ARF, appy, cholecystitis, CVA, Diverticulitis, Homicidal, Suicidal, threat to staff... and all critical care pts) @ -yes (Sridhar Mariscal) - Lab Data Lab Results 09/07/23 Range/Units 18:31 Troponin I 0.210 H* (0.000-0.034) ng/mL Disposition <Yenifer Dawn - Last Filed: 09/07/23 18:21> Decision Time: 22:06 <Sridhar Mariscal - Last Filed: 09/07/23 22:13> Clinical Impression: NSTEMI (non-ST elevated myocardial infarction) Disposition: ADMITTED IP TO THIS [facility] Condition: Serious Referrals: Petar Maria MD [Primary Care Provider] - 1-2 days
[2023-09-07] MEDS ORDERED: HEPARIN SODIUM 1,000 UN/ML (10ML VL) IV PRN (22:01)
[2023-09-07] MEDS ORDERED: NITROGLYCERIN SL TABS 0.4 MG TAB SUBLINGUAL PRN (22:11)
[2023-09-07] MEDS: ASPIRIN 81 MG PO STA (22:14)
[2023-09-07] MEDS: HEPARIN SODIUM 1,000 UN/ML (10ML VL) IV ONE (22:15)
[2023-09-07] MEDS: HEPARIN SOD,PORK IN 0.45% NACL 25,000 UNIT in 0.45% NACL 1 250ML.BAG IV SCH (22:31)
[2023-09-08] MEDS: ASPIRIN 325 MG TAB PO SCH (08:18)
[2023-09-08] MEDS: ASPIRIN 81 MG PO SCH (08:21)
[2023-09-08] MEDS ORDERED: CAFFEINE CITRATE 60 MG/3 ML VIAL IV PRN (08:23)
[2023-09-08] MEDS ORDERED: REGADENOSON 0.4 MG/5 ML SYRINGE IV PRN (08:23)
[2023-09-08] MEDS ORDERED: AMINOPHYLLINE 500 MG/20 ML VIAL IV PRN (08:23)
[2023-09-08] MEDS ORDERED: ASPIRIN 325 MG TAB PO SCH (09:00)
[2023-09-08] MEDS: LISINOPRIL-HCTZ 20-25 MG 1 EACH TAB PO SCH (09:04)
--- NOTE | 2023-09-08 10:15 | P.CRDCN ---
History of Present Illness History of present illness: HISTORY OF PRESENT ILLNESS: This is a 88-year-old female with a past medical history significant for permanent pacemaker implantation, hypertension, and hyperlipidemia. Patient follows in the office with Dr. Cerrato. We have been asked to see the patient in consultation for elevated troponins. Patient examined at the bedside in the emergency room. The patient presented to the hospital yesterday with severe vertigo. The patient denied having any episodes of chest pain or pressure. For an unknown reason the patient had troponin levels drawn which were resulted back after the patient was discharged home. She was called by hospital staff and asked to return back to the hospital. The patient continues to deny any chest pain or pressure. Vital signs are stable. She states that her vertigo has since resolved. DIAGNOSTICS: - EKG reveals paced rhythm. - Laboratory data: Troponin 0.210. 0.236. 0.199. - Current home cardiac medications include propranolol 60 mg at night, simvastatin 40 mg at night, lisinoprilhydrochlorothiazide 20-25 mg daily. - Most recent echocardiogram obtained in May 2023 revealed ejection fraction 52%, mild MR, mild to moderate TR - Patient underwent Lexiscan stress test in 12/2019 which was negative for ischemia REVIEW OF SYSTEMS: At the time of my exam: CONSTITUTIONAL: Denies fever or chills. HEENT: Denies blurred vision, vision changes, or eye pain. Denies hemoptysis CARDIOVASCULAR: Denies chest pain. Denies orthopnea. Denies PND. Denies palpitations RESPIRATORY: Denies shortness of breath. GASTROINTESTINAL: Denies abdominal pain. Denies nausea or vomiting. HEMATOLOGIC: Denies bleeding disorders. GENITOURINARY: Denies any blood in urine. SKIN: Denies pruitis. Denies rash. PHYSICAL EXAM: VITAL SIGNS: Reviewed. GENERAL: Well-developed in no acute distress. HEENT: Head is normocephalic. Pupils are equal, round. Sclerae anicteric. Mucous membranes of the mouth are moist. Neck supple. No JVD or thyromegaly LUNGS: Respirations even and unlabored. Lungs essentially clear to auscultation bilaterally. HEART: Regular rate and rhythm. S1 and S2 heard. ABDOMEN: Soft. Nondistended. Nontender. EXTREMITIES: Normal range of motion. No clubbing or cyanosis. Peripheral pulses intact. No lower extremity edema NEUROLOGIC: Awake and alert. Oriented x 3. ASSESSMENT: Vertigo, resolved Elevated troponins of unclear etiology History of permanent pacemaker implantation History of hypertension History of hyperlipidemia PLAN: Resume home cardiac medications Obtain 2D echo to assess cardiac structure and function Discussed stress testing versus cardiac catheterization with patient. Patient would like to proceed with stress testing. Patient was given breakfast this morning by ER staff so Lexiscan stress test is unable to be completed today Patient to undergo Lexiscan stress test tomorrow. N.p.o. at midnight Further recommendations pending patient course Nurse practitioner note has been reviewed by physician. Signing provider agrees with the documented findings, assessment, and plan of care documented by COOK SUPERVISOR as a scribe. Past Medical History Past Medical History: GERD/Reflux, GI Bleed, Hyperlipidemia, Hypertension, Osteoarthritis (OA) Additional Past Medical History / Comment(s): arthritis, past arrythmia where heart rate dipped into 40's-has pacemaker since 2007 and history of lower GI hemorrhage, LEAKLAGE OF URINE, CATARACTS History of Any Multi-Drug Resistant Organisms: None Reported Past Surgical History: Hysterectomy, Pacemaker, Tubal Ligation Additional Past Surgical History / Comment(s): ingris breast biopsy,colonoscopy, INGRIS KNEE REPLACEMENT Past Anesthesia/Blood Transfusion Reactions: No Reported Reaction Type of Cardiac Device: Permanent Pacemaker Device Placement Date:: 2007 Past Psychological History: Anxiety Past Alcohol Use History: Occasional Past Drug Use History: None Reported - Past Family History Father Family Medical History: Congestive Heart Failure (CHF), Diabetes Mellitus, Hypertension Mother Family Medical History: Diabetes Mellitus, Hyperlipidemia, Hypertension, Myocardial Infarction ([place]) Additional Family Medical History / Comment(s): kidney stones/GALL STONES Medications and Allergies Home Medications Medication Instructions Recorded Confirmed Type Escitalopram [Lexapro] 10 mg PO DAILY 07/31/14 09/08/23 History Lisinopril-Hctz 20-25 mg 1 tab PO DAILY 07/31/14 09/08/23 History [Zestoretic 20-25] Propranolol HCl [Propranolol HCl 60 mg PO HS 07/31/14 09/08/23 History ER] Simvastatin [Zocor] 40 mg PO HS 07/31/14 09/08/23 History Nystatin 100,000Unit/gm Cream 1 applic TOPICAL TID PRN 09/08/23 09/08/23 History [Mycostatin Cream] Omeprazole 40 mg PO DAILY 09/08/23 09/08/23 History Zolpidem [Ambien] 2.5 mg PO HS PRN 09/08/23 09/08/23 History Allergies Allergy/AdvReac Type Severity Reaction Status Date / Time No Known Allergies Allergy Verified 09/08/23 07:12 Physical Exam Vitals: Vital Signs Temp Pulse Resp BP Pulse Ox 09/08/23 07:40 63 16 108/66 09/08/23 04:20 66 16 94/41 09/08/23 00:14 67 16 112/57 95 09/07/23 23:01 98.2 F 70 17 122/69 98 09/07/23 18:03 97.9 F 62 16 104/66 96 Intake and Output 09/07/23 09/08/23 09/08/23 22:59 06:59 14:59 Other: Weight 83.915 kg Results Cardiac Enzymes 09/07/23 09/07/23 09/08/23 Range/Units 18:31 22:20 00:44 Troponin I 0.210 H* 0.236 H* 0.199 H* (0.000-0.034) ng/mL Coagulation 09/08/23 Range/Units 07:22 APTT 52.3 H (22.0-30.0) sec Current Medications Generic Name Dose Route Start Last Admin Trade Name Wayneq PRN Reason Stop Dose Admin Aspirin 81 mg 09/08/23 09:00 09/08/23 08:18 Aspirin 325 Mg Tab PO 81 mg DAILY JESSICA Administration Heparin Sodium (Porcine) 0 unit 09/07/23 22:01 Heparin Sodium 1,000 Un/Ml (10ml Vl) IV PER PROTOCOL PRN Low PTT Protocol Heparin Sodium/Sodium Chloride 250 mls @ 10 mls/hr 09/07/23 22:15 09/07/23 22:31 25,000 unit/ Sodium Chloride IV 11.917 units/kg/hr .Q24H JESSICA 10 mls/hr Administration Protocol 11.917 UNITS/KG/HR Nitroglycerin 0.4 mg 09/07/23 22:11 Nitroglycerin Sl Tabs 0.4 Mg Tab SUBLINGUAL Q5M PRN Chest Pain Intake and Output 09/07/23 09/08/23 09/08/23 22:59 06:59 14:59 Other: Weight 83.915 kg
[2023-09-08 11:51] LABS: LDL Cholesterol,Calculated 64.3 mg/dL (0.0-131.0)
[2023-09-08] MEDS ORDERED: NYSTATIN 100,000UNIT/GM CREAM 30 GM TUBE TOPICAL PRN (12:07)
--- NOTE | 2023-09-08 14:39 | P.HPIM ---
History of Present Illness 88-year-old female came in because of elevated troponins patient came into emergency department yesterday was complaining about dizziness symptoms which resolved after which patient was sent home. Patient had a troponin drawn during that stay and found to be elevated. Patient has troponin of 0.10, 0.236 and 0.199. Patient was called back and was admitted patient is hypotensive on this hospitalization as well because of which I am holding of antihypertensive medications. EKG showed paced rhythm echocardiogram showed normal ejection fraction with mild MR and moderate TR patient underwent stress test in December 2019 which was negative for any inducible ischemia cardiology evaluated the patient, recommended either stress test or cardiac catheterization and patient opted for stress test which will be done tomorrow. REVIEW OF SYSTEMS: CONSTITUTIONAL: No fever, no malaise, no fatigue. HEENT: No recent visual problems or hearing problems. Denied any sore throat. CARDIOVASCULAR: No chest pain, orthopnea, PND, no palpitations, no syncope. PULMONARY: No shortness of breath, no cough, no hemoptysis. GASTROINTESTINAL: No diarrhea, no nausea, no vomiting, no abdominal pain. NEUROLOGICAL: No headaches, no weakness, no numbness. HEMATOLOGICAL: Denies any bleeding or petechiae. GENITOURINARY: Denies any burning micturition, frequency, or urgency. MUSCULOSKELETAL/RHEUMATOLOGICAL: Denies any joint pain, swelling, or any muscle pain. ENDOCRINE: Denies any polyuria or polydipsia. The rest of the 14-point review of systems is negative. PHYSICAL EXAMINATION: GENERAL: The patient is alert and oriented x3, not in any acute distress. Well developed, well nourished. HEENT: Pupils are round and equally reacting to light. EOMI. No scleral icterus. No conjunctival pallor. Normocephalic, atraumatic. No pharyngeal erythema. No thyromegaly. CARDIOVASCULAR: S1 and S2 present. No murmurs, rubs, or gallops. PULMONARY: Chest is clear to auscultation, no wheezing or crackles. ABDOMEN: Soft, nontender, nondistended, normoactive bowel sounds. No palpable organomegaly. MUSCULOSKELETAL: No joint swelling or deformity. EXTREMITIES: No cyanosis, clubbing, or pedal edema. NEUROLOGICAL: Gross neurological examination did not reveal any focal deficits. SKIN: No rashes. Assessment and plan -Troponin elevation which is a flat elevation, stress test tomorrow further management as per cardiology patient is on IV heparin at this time -Peripheral vertigo which resolved at this time probably benign positional ve rtigo patient may actually have lightheadedness than vertigo may be secondary to hypotension -Hypertension patient is hypotensive hold off on the hydrochlorothiazide and lisinopril will monitor the blood pressures start them at a lower dose if needed -Hyperlipidemia DVT prophylaxis: Ambulation visit Past Medical History Past Medical History: GERD/Reflux, GI Bleed, Hyperlipidemia, Hypertension, Osteoarthritis (OA) Additional Past Medical History / Comment(s): arthritis, past arrythmia where heart rate dipped into 40's-has pacemaker since 2007 and history of lower GI hemorrhage, LEAKLAGE OF URINE, CATARACTS History of Any Multi-Drug Resistant Organisms: None Reported Past Surgical History: Hysterectomy, Pacemaker, Tubal Ligation Additional Past Surgical History / Comment(s): ingris breast biopsy,colonoscopy, INGRIS KNEE REPLACEMENT Past Anesthesia/Blood Transfusion Reactions: No Reported Reaction Type of Cardiac Device: Permanent Pacemaker Device Placement Date:: 2007 Past Psychological History: Anxiety Past Alcohol Use History: Occasional Past Drug Use History: None Reported - Past Family History Father Family Medical History: Congestive Heart Failure (CHF), Diabetes Mellitus, Hypertension Mother Family Medical History: Diabetes Mellitus, Hyperlipidemia, Hypertension, Myocardial Infarction ([place]) Additional Family Medical History / Comment(s): kidney stones/GALL STONES Medications and Allergies Home Medications Medication Instructions Recorded Confirmed Type Escitalopram [Lexapro] 10 mg PO DAILY 07/31/14 09/08/23 History Lisinopril-Hctz 20-25 mg 1 tab PO DAILY 07/31/14 09/08/23 History [Zestoretic 20-25] Propranolol HCl [Propranolol HCl 60 mg PO HS 07/31/14 09/08/23 History ER] Simvastatin [Zocor] 40 mg PO HS 07/31/14 09/08/23 History Nystatin 100,000Unit/gm Cream 1 applic TOPICAL TID PRN 09/08/23 09/08/23 History [Mycostatin Cream] Omeprazole 40 mg PO DAILY 09/08/23 09/08/23 History Zolpidem [Ambien] 2.5 mg PO HS PRN 09/08/23 09/08/23 History Allergies Allergy/AdvReac Type Severity Reaction Status Date / Time No Known Allergies Allergy Verified 09/08/23 07:12 Physical Exam Vitals: Vital Signs Temp Pulse Resp BP Pulse Ox 09/08/23 11:00 98.2 F 60 16 106/57 99 09/08/23 09:00 69 16 110/57 09/08/23 07:40 63 16 108/66 09/08/23 04:20 66 16 94/41 09/08/23 00:14 67 16 112/57 95 09/07/23 23:01 98.2 F 70 17 122/69 98 09/07/23 18:03 97.9 F 62 16 104/66 96 Intake and Output 09/07/23 09/08/23 09/08/23 22:59 06:59 14:59 Other: Weight 83.915 kg Results Labs: Abnormal Lab Results - Last 24 Hours (Table) 09/07/23 09/07/23 09/08/23 Range/Units 18:31 22:20 00:44 APTT (22.0-30.0) sec Troponin I 0.210 H* 0.236 H* 0.199 H* (0.000-0.034) ng/mL 09/08/23 Range/Units 07:22 APTT 52.3 H (22.0-30.0) sec Troponin I (0.000-0.034) ng/mL
[2023-09-08] MEDS: HEPARIN SODIUM,PORCINE 5,000 UNIT/ML 1 ML VIAL SQ SCH (15:39)
[2023-09-08 16:00] VITALS: TEMP 98.6
[2023-09-08] MEDS: PROPRANOLOL LA 60 MG CAP.SA.24H PO SCH (21:13)
[2023-09-08] MEDS: ATORVASTATIN 20 MG TAB PO SCH (21:13)
[2023-09-09] MEDS ORDERED: REGADENOSON 0.4 MG/5 ML SYRINGE IV PRN (06:00)
[2023-09-09] MEDS: PANTOPRAZOLE 40 MG TABLET PO SCH (08:35)
[2023-09-09] MEDS: ESCITALOPRAM 10 MG TAB PO SCH (08:57)
--- NOTE | 2023-09-09 10:25 | P.PN ---
Subjective HISTORY OF PRESENT ILLNESS: This is a 88-year-old female with a past medical history significant for permanent pacemaker implantation, hypertension, and hyperlipidemia. Patient follows in the office with Dr. Cerrato. We have been asked to see the patient in consultation for elevated troponins. Patient examined at the bedside in the emergency room. The patient presented to the hospital yesterday with severe vertigo. The patient denied having any episodes of chest pain or pressure. For an unknown reason the patient had troponin levels drawn which were resulted back after the patient was discharged home. She was called by hospital staff and asked to return back to the hospital. The patient continues to deny any chest pain or pressure. Vital signs are stable. She states that her vertigo has since resolved. DIAGNOSTICS: - EKG reveals paced rhythm. - Laboratory data: Troponin 0.210. 0.236. 0.199. - Current home cardiac medications include propranolol 60 mg at night, simvastatin 40 mg at night, lisinoprilhydrochlorothiazide 20-25 mg daily. - Most recent echocardiogram obtained in May 2023 revealed ejection fraction 52%, mild MR, mild to moderate TR - Patient underwent Lexiscan stress test in 12/2019 which was negative for ischemia 09/09/2023 Patient examined this morning in the emergency room. Patient currently denies any chest pain or pressure. She denies shortness of breath. Vital signs are stable. 2D echo is currently pending. PHYSICAL EXAM: VITAL SIGNS: Reviewed. GENERAL: Well-developed in no acute distress. HEENT: Head is normocephalic. Pupils are equal, round. Sclerae anicteric. Mucous membranes of the mouth are moist. Neck supple. No JVD or thyromegaly LUNGS: Respirations even and unlabored. Lungs essentially clear to auscultation bilaterally. HEART: Regular rate and rhythm. S1 and S2 heard. ABDOMEN: Soft. Nondistended. Nontender. EXTREMITIES: Normal range of motion. No clubbing or cyanosis. Peripheral pulses intact. No lower extremity edema NEUROLOGIC: Awake and alert. Oriented x 3. ASSESSMENT: Vertigo, resolved Elevated troponins of unclear etiology History of permanent pacemaker implantation History of hypertension History of hyperlipidemia PLAN: Continue current cardiac medications 2D echo has been ordered. Await results. Discussed stress testing versus cardiac catheterization yesterday with patient. Patient would like to proceed with stress testing. Patient to undergo Lexiscan stress test today If negative, she may be discharged home today from a cardiac standpoint Further recommendations pending patient course Nurse practitioner note has been reviewed by physician. Signing provider agrees with the documented findings, assessment, and plan of care documented by INTERACTIVE WEB DEVELOPER as a scribe. Objective - Vital Signs Vital signs: Vital Signs Temp 98.6 F 09/08/23 15:57 Pulse 60 09/09/23 08:00 Resp 16 09/09/23 08:00 BP 122/64 09/09/23 08:00 Pulse Ox 97 09/09/23 08:00 FiO2
--- NOTE | 2023-09-09 12:20 | NM ---
EXAMINATION TYPE: NM stress lexiscan cardiolite DATE OF EXAM: 09/09/2023 COMPARISON: NONE HISTORY: Chest pain TECHNIQUE: After the intravenous administration of 9.83 mCi Tc 99m Sestamibi - Cardiolite resting SP ECT images acquired 45 minutes post injection. At peak stress 26.6 mCi Tc 99m Sestamibi - Stress images obtained 30 minutes post injection The patient was stressed with 0.4mg Lexiscan. FINDINGS: There is a fixed defect at the cardiac apex. Fixed defect appears to be along the inferior lateral wa ll extending towards the apex. No reversible stress defects on Spect images There is dyskinesia of the cardiac apex Ejection fraction is calculated to be 54 %. IMPRESSION: 1. Fixed defect at the cardiac apex with some image radiotracer accumulation which appears fixed carl g the inferior lateral wall extending towards the cardiac apex. 2. Dyskinesia of the cardiac apex. Remaining wall motion appears normal. 3. Normal ejection fraction 54%
--- NOTE | 2023-09-09 14:11 | CA ---
Lexiscan Nuclear Stress Test Report Name: Francine Hernández Exam Date: 09/09/2023 09:57 Exam Location: [facility] Stress Ht (in): 65 Wt (lb): 185 BSA: 1.91 Ordering Phys: Gerri Bell Referring Phys: RADHA Technologist: Sandy Camarena RDCS Age: 88 Gender: F : 1935 Procedure CPT: Indications: Reflex order-Stress test ICD-10 Codes: Patient History: Medications: see chart Meds past 24 hrs: Pretest Chest Pain: STRESS TEST Lexiscan Protocol Exercise Duration (min:sec): 01:[address] Depressions (mm): Angina Score: Blue Score: Resting HR (bpm): 60 Peak HR (bpm): 80 Resting BP (mmHg): 142 / 66 Peak BP (mmHg): 123 / 56 MPHR: 134 Target HR: 114 % MPHR: 60 METS: 1.0 Total Dose: Peak Dose: Atropine: Double Product: 9840 BP Response: Stress Termination: PROTOCOL COMPLETE Stress Symptoms: NO SYMPTOMS Stress Summary: ECG ANALYSIS Resting ECG: Stress ECG: CONCLUSIONS At baseline EKG showed ventricular paced rhythm. Patient recieved IV infusion of Lexiscan 0.4mg and at peak infusion EKG showed no significant change from baseline. Conclusions: 1. Nonspecific stress EKG portion secondary baseline EKG abnormalities. 2. Nuclear imaging to be reported separately. Dr. Javier Benton DO (Electronically Signed) Final Date: 09 September 2023 14:10
[2023-09-09 16:48] VITALS: BP 133/68; PULSE 65; RESP 16
--- NOTE | 2023-09-11 21:30 | CDI ---
Documentation Clarification Form Date: 09/11/2023 09:10:16 PM From: Bhavya Pepper Phone: Admit Date: 09/07/2023 10:12:00 PM Patient Name: Francine Hernández Visit Number: [id number] Discharge Date: 09/09/2023 05:40:00 PM ATTENTION: The Clinical Documentation Specialists (CDI) and [facility] Coding Staff appreciate your assistance in clarifying documentation. Please respond to the clarification below the line at the bottom and electronically sign. The CDI & [facility] Coding staff will review the response and follow-up if needed. Please note: Queries are made part of the Legal Health Record. If you have any questions, please contact the author of this message via ITS. Dr. Lian Bullard The patients principal diagnosis the diagnosis that was chiefly responsible for the admission - has not been clearly identified and clarification is requested. The patient presented with Peripheral vertigowhich resolvedat this timeprobablybenign positional vertigopatient may actually havelightheadednessthanvertigomay be secondary tohypotension History/Risk factors: 88yo F, Vertigo,elevated troponinsof unclear etiology, HTN, HLD, MR/TR, PPM Clinical Indicators: Current home cardiac meds include propranolol 60 mg at night, simvastatin 40 mg at night, lisinopril Htc 20-25 mg daily. Echo 05/23: revealed EF 52%, mild MR, mild to moderate TR; Lexiscanstresstestin 12/2019which was negative for ischemia NMstressLexiscan: Fixed defect at the cardiac apex with some image radiotracer accumulation which appears fixed along the inferior lateral wall extending towards the cardiac apex. 2 Dyskinesiaof the cardiac apex. Remaining wall motion appears normal. 3 Normal EF 54% Vital Signs: T 97. 9 AR 62 RR 16 BP 104/66 O2 Sat 96 Treatment: hypotensivehold off onthe Htc and Lisinopril will monitor the bloodpressuresstart them at a lower dose if needed Cardio Consult: Resume home meds. Obtain 2D echo. Discussedstresstestingversuscardiac cathwith patient. Patient would like to proceed withstresstesting. Patient was given breakfast this morning by ER staff so Lexiscanstresstestis unable ct completed today. Patient to undergo Lexiscanstresstesttomorrow. NPO at midnight. In your professional opinion, can you please clarify which diagnosis, after study, was the reason chiefly responsible for the admission? [ ] Hypotension due to hydrochlorothiazide [ x ] Peripheral vertigo [ ] Benign positional vertigo [ ] Other, please specify [ ] Unable to determine (Template Last Revised: April 2020) MTDD
--- NOTE | 2023-09-12 08:30 | P.DS ---
Providers Date of admission: 09/07/23 22:12 Attending physician: Santos Chávez Consults: 09/07/23 22:11 Consult Physician Urgent Consulting Provider: John Huntley Consult Reason/Comments: elevated troponpin Do you want consulting provider notified?: Yes Primary care physician: Petar [facility] Course: Final Diagnosis -Troponin elevation which is a flat elevation, unclear etiology -Peripheral vertigo which resolved at this time probably benign positional vertigo -Hypertension patient is hypotensive hold off on the hydrochlorothiazide and lisinopril will monitor the blood pressures start them at a lower dose if needed -Hyperlipidemia -Permanent pacemaker implantation Discharge Disposition Stable for discharge home she was cleared by cardiology and will require close follow-up with her main sas sql developer Dr. Freire in the office in 1 to 2 weeks. Recommending to repeat blood work. Patient should hold her hydrochlorothiazide lisinopril combination secondary to low blood pressures and vertigo dizziness. Repeat blood work in 2 to 3 days. Hospital Course 88-year-old female came in because of elevated troponins patient came into emergency department yesterday was complaining about dizziness symptoms which resolved after which patient was sent home. Patient had a troponin drawn during that stay and found to be elevated. Patient has troponin of 0.10, 0.236 and 0.199. Patient was called back and was admitted patient is hypotensive on this hospitalization as well because of which I am holding of antihypertensive medications. EKG showed paced rhythm echocardiogram showed normal ejection fraction with mild MR and moderate TR patient underwent stress test in December 2019 which was negative for any inducible ischemia cardiology evaluated the patient, recommended either stress test or cardiac catheterization and patient opted for stress test. Patient had a ejection fraction of 54% with a negative stress test. Patient was cleared by cardiology. She is not having any chest pain or shortness of breath her symptoms of vertigo have resolved at this time. She will be discharged home with close follow-up with her main sas sql developer. Please see medication reconciliation for a list of current medications. Thank you for allowing us to participate in the care of this patient. The impression and plan of care has been dictated by Annelise Medina, Nurse Practitioner as directed. Dr. Juan Miguel MD I have performed a history and physical examination and medical decision making of this patient, discussed the same with the dictator, and agree with the dictators assessment and plan as written, documented as a scribe. Based on total visit time, I have performed more than 50% of this visit. Patient Condition at Discharge: Stable Plan - Discharge Summary New Discharge Prescriptions: New Aspirin 81 mg PO DAILY #30 tab Continue Simvastatin [Zocor] 40 mg PO HS Propranolol HCl [Propranolol HCl ER] 60 mg PO HS Escitalopram [Lexapro] 10 mg PO DAILY Omeprazole 40 mg PO DAILY Zolpidem [Ambien] 2.5 mg PO HS PRN PRN Reason: Insomnia Nystatin 100,000Unit/gm Cream [Mycostatin Cream] 1 applic TOPICAL TID PRN PRN Reason: under breasts Discontinued Lisinopril-Hctz 20-25 mg [Zestoretic 20-25] 1 tab PO DAILY Discharge Medication List Escitalopram [Lexapro] 10 mg PO DAILY 07/31/14 [History] Propranolol HCl [Propranolol HCl ER] 60 mg PO HS 07/31/14 [History] Simvastatin [Zocor] 40 mg PO HS 07/31/14 [History] Nystatin 100,000Unit/gm Cream [Mycostatin Cream] 1 applic TOPICAL TID PRN 09/08/23 [History] Omeprazole 40 mg PO DAILY 09/08/23 [History] Zolpidem [Ambien] 2.5 mg PO HS PRN 09/08/23 [History] Aspirin 81 mg PO DAILY #30 tab 09/09/23 [Rx] Follow up Appointment(s)/Referral(s): Petar Maria MD [Primary Care Provider] - 1-2 days Dimas Cerrato MD [STAFF PHYSICIAN] - 1 Week Ambulatory/Diagnostic Orders: Basic Metabolic Panel [LAB.AMB] Time Frame: 4 Days, Location: None Selected Discharge Disposition: HOME SELF-CARE
== END 2023-09-09 17:40 | disposition home or self-care (01) | DRG 149 ==
LOC: EC 17:54 → 3SCARD 22:12
PROVIDERS: ADMIT Hospitalist; ATTEND Hospitalist
DX: H81.399 Other peripheral vertigo, unspecified ear (principal); I95.9 Hypotension, unspecified; E78.5 Hyperlipidemia, unspecified; I10 Essential (primary) hypertension; I08.1 Rheumatic disorders of both mitral and tricuspid valves; H81.10 Benign paroxysmal vertigo, unspecified ear; R79.89 Other specified abnormal findings of blood chemistry; Z96.653 Presence of artificial knee joint, bilateral; Z79.899 Other long term (current) drug therapy; Z82.49 Family history of ischemic heart disease and other diseases of the circulatory system; Z95.0 Presence of cardiac pacemaker
CPT/HCPCS: 36415; 78452; 80061; 82550; 82607; 84484; 85730; 93005; 93017; 96365; 96366; 96372; 99291

== ENCOUNTER → 2024-06-07 | Day surgery (SDC) | payer MEDICARE ==
[~2024-06-07] MED LIST changes: +ACETAMINOPHEN IV (For NPO) 1,000 MG in EMPTY BAG 1 BAG IVPB ONE; +ACETAMINOPHEN TAB 325 MG TAB PO PRN; +ATORVASTATIN 20 MG TAB PO SCH; -DEXAMETHASONE SOD PHOSPHATE 10 MG/ML 1 ML VIAL IV ONE; -HEPARIN SODIUM,PORCINE 5,000 UNIT/ML 1 ML VIAL SQ ONE; -HYDROmorphone 1 MG/ML 1 ML SYRINGE IVP PRN; -LACTATED RINGERS 1,000 ML IV SCH; +METOPROLOL SUCCINATE (ER) 25 MG TAB.ER.24H PO SCH; +MIDAZOLAM 2 MG/2 ML VIAL ONE; -ONDANSETRON 4 MG/2 ML VIAL IVP ONE; -Pre Op ABX Message 1 EACH MISC MISCELLANE ONE; +diphenhydrAMINE 50 MG/ML 1 ML VIAL ONE; +fentaNYL (PF) 50 MCG/ML 2 ML AMP ONE
[2024-06-07] MEDS: SODIUM CHLORIDE 0.9% 1,000 ML IV SCH (10:05)
[2024-06-07] MEDS: IV FLUID CONTINUATION 1,000 ML IV ONE (10:05)
[2024-06-07 10:26] VITALS: TEMP 98
[2024-06-07] MEDS: ceFAZolin 1 GM in SODIUM CHLORIDE 0.9% IRRIG BTL 250 ML IRRIGATION PRN (11:10)
[2024-06-07] MEDS: VANCOMYCIN 1,000 MG in SODIUM CHLORIDE 0.9% 250 ML IVPB STA (11:10)
[2024-06-07] MEDS: LIDOCAINE 1% INJ 10MG/ML (20 ML MDV) SQ ONE ×2 (11:20→11:38)
[2024-06-07] MEDS: ceFAZolin 2 GM in DEXTROSE 5% IN WATER 50 ML IVPB PRN (11:24)
[2024-06-07] MEDS: ROPIVACAINE 5 MG/ML 30 ML VIAL MISCELLANE ONE (11:38)
--- NOTE | 2024-06-07 12:18 | P.EPPROC ---
- EP Procedure Note Electrophysiology Procedure Note: Transvenous temporary pacing procedure Indication for the procedure: Complete heart block, dual-chamber pacemaker at [facility] Patient was brought to the EP lab in a fasting state. Written informed consent was obtained prior to the procedure. The right groin was prepped and draped as a protocol. A 6-Portuguese sheath was placed in the right femoral vein. Via this, a temporary pacing catheter was placed in the right ventricle. Thresholds were interrogated. Temporary pacing was performed through the rest of the procedure. At the end of the entire procedure, the TVP was removed. The sheath was removed and hemostasis was assured. Patient tolerated the procedure well without any acute complications. Procedure performed Transvenous temporary pacing
--- NOTE | 2024-06-07 12:21 | P.EPPROC ---
- EP Procedure Note Electrophysiology Procedure Note: Diagnosis Heart block status post dual-chamber pacemaker Dual-chamber pacemaker at [facility], normal battery depletion Procedure Dual-chamber pacemaker generator change TVP, (see separate dictation) Details Patient was brought to the EP lab in a fasting state. Written informed consent was obtained prior to the procedure. Conscious sedation provided. IV antibiotics including IV vancomycin administered. Local anesthesia administered. A 4 cm incision made in the pectoral area. Subfascial pocket accessed. Partial capsulectomy performed. Chronic atrial lead tip position the right atrial appendage. Pacing threshold 0.5 V at 0.4 ms, P waves 4.2 mV and pacing impedance 390 ohms Chronic RV lead position in the RV apex. 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 pacemaker implanted, Gutierrez Antibiotic pouch placed Dual-chamber pacemaker device connected to the leads and placed in the subfascial pocket Patient tolerated the procedure well without acute complications Pacemaker programming: DDDR 60-120, paced AV delay of 180 ms
[2024-06-07 15:06] VITALS: PULSE 60
[2024-06-07 15:13] VITALS: BP 127/61; RESP 14
[2024-06-07] MEDS: ceFAZolin 2 GM in DEXTROSE 5% IN WATER 50 ML IVPB SCH (16:01)
== END | disposition home or self-care (01) ==
LOC: CATHEP 09:23
PROVIDERS: ATTEND Internal Medicine Clinical Cardiac Electrophysiology
DX: Z45.010 Encounter for checking and testing of cardiac pacemaker pulse generator [battery] (principal); I44.2 Atrioventricular block, complete; R00.1 Bradycardia, unspecified; I10 Essential (primary) hypertension; E78.2 Mixed hyperlipidemia; F17.210 Nicotine dependence, cigarettes, uncomplicated; Z79.82 Long term (current) use of aspirin
CPT/HCPCS: 33228; C1894; C1769 ×2; C1760; C1730; C1785; J2250; J3370; J1200; J0690; J2003; J3010; J2795